=== PATIENT | male | born 1970 | race Caucasian/White ===

== ENCOUNTER 2025-03-21 12:45 | Outpatient (CLI) | payer BC, SELFPAY ==
--- NOTE | 2025-03-21 14:24 | P.ANES_ITS ---
Anesthesia Charges Start Date/Time Anesthesia Start Date: 03/21/25 Anesthesia Start Time: 13:45 Stop Date/Time Anesthesia Stop Date: 03/21/25 Anesthesia Stop Time: 14:22 Coding CPT Codes CPT Codes: RG LWR INTST NDSC NOS - [id number] ([id number]) P2 - PATIENT W/MILD SYST DISEASE, QK - VB NET DEVELOPER 2-4 CNCRNT ANES PROC, QX - BACTERIOLOGIST INDUSTRIAL SVC W/ MD MED DIRECTION
--- NOTE | 2025-03-21 14:24 | W.ANESCHARGE ---
Anesthesia Charges Start Date/Time Anesthesia Start Date: 03/21/25 Anesthesia Start Time: 13:45 Stop Date/Time Anesthesia Stop Date: 03/21/25 Anesthesia Stop Time: 14:22 Coding CPT Codes CPT Codes: RG LWR INTST NDSC NOS - [id number] ([id number]) P2 - PATIENT W/MILD SYST DISEASE, QK - FILTER PRESS SUPERVISOR 2-4 CNCRNT ANES PROC, QX - SECURITY GUARDS DISPATCHER SVC W/ MD MED DIRECTION
--- NOTE | 2025-03-21 15:00 | P.ANES_ITS ---
Anesthesia Charges Start Date/Time Anesthesia Start Date: 03/21/25 Anesthesia Start Time: 13:45 Stop Date/Time Anesthesia Stop Date: 03/21/25 Anesthesia Stop Time: 14:22 Coding CPT Codes CPT Codes: RG LWR INTST NDSC NOS - [id number] ([id number]) P2 - PATIENT W/MILD SYST DISEASE, QK - STUDENT SUCCESS COUNSELOR 2-4 CNCRNT ANES PROC, QX - SPECIMEN COLLECTOR SVC W/ MD MED DIRECTION
--- NOTE | 2025-03-21 15:00 | W.ANESCHARGE ---
Anesthesia Charges Start Date/Time Anesthesia Start Date: 03/21/25 Anesthesia Start Time: 13:45 Stop Date/Time Anesthesia Stop Date: 03/21/25 Anesthesia Stop Time: 14:22 Coding CPT Codes CPT Codes: RG LWR INTST NDSC NOS - [id number] ([id number]) P2 - PATIENT W/MILD SYST DISEASE, QK - DAIRY CATTLE FARMER 2-4 CNCRNT ANES PROC, QX - STOKER MECHANIC SVC W/ MD MED DIRECTION
== END 2025-03-21 12:46 | disposition home or self-care (01) ==
PROVIDERS: PCP Family Medicine; Visit Provider Internal Medicine Gastroenterology
DX: K57.00 Diverticulitis of small intestine with perforation and abscess without bleeding (principal); Z86.0101 Personal history of adenomatous and serrated colon polyps
CPT/HCPCS: 00811; 45380; J2704